=== PATIENT | male | born 1930 | race Caucasian/White ===

== ENCOUNTER 2018-04-08 09:24 | Emergency (ER) | payer MEDICARE, BC ==
[2018-04-08 09:40] VITALS: BP 135/83
--- NOTE | 2018-04-08 10:25 | CR ---
Chest 2V HISTORY: dyspnea FINDINGS: Heart size is within normal limits. Mild atherosclerotic calcification is seen in the aorti c arch. Pulmonary vasculature is not engorged. Blunting of the costophrenic angles bilaterally could represent a small amount of pleural thickening or fluid. There are mild interstitial infiltrates vers us atelectasis retrocardiac region left lower lobe. Mild degenerative changes are noted lower thoraci c spine. There are prominent degenerative and hypertrophic changes, glenohumeral joint right shoulder . IMPRESSION: Possible interstitial pneumonia versus atelectasis retrocardiac region left lower lobe. B lunting of the costophrenic angles bilaterally suggests a small amount of pleural thickening or fluid . No other acute chest abnormality is identified.
--- NOTE | 2018-04-08 11:02 | EDM.PDOC ---
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 He has been coughing, this morning he had some productive sputum and neck concerning the fire [employer] so he brought him in to be seen. Intermittent shortness of breath but no significant fever. No dysuria or abdominal pain. Onset: Gradual (Over the past 12 hours) Severity: Mild - Related Data Allergies Allergy/AdvReac Type Severity Reaction Status Date / Time No Known Allergies Allergy Verified 04/08/18 09:38 Home Meds: Home Meds Aspirin 81 mg PO DAILY 08/25/15 [History] Cinnamon Bark [Cinnamon] 500 mg PO BID 08/25/15 [History] Metoprolol Succinate [Toprol XL] 25 mg PO DAILY 08/25/15 [History] Lindrith-3/DHA/Epa/Fish Oil [Fish Oil] 500 mg PO DAILY 08/25/15 [History] Simvastatin [Zocor] 40 mg PO BEDTIME 08/25/15 [History] Warfarin [Coumadin] 2.5 mg PO ASDIRECTED 04/08/18 [History] Past Medical History HEENT History: Reports: Hard of Hearing, Other (See Below) Other HEENT History: bilateral hearing aids Cardiovascular History: Reports: Arrhythmia, Blood Clots/VTE/DVT, Hypertension Respiratory History: Reports: None Gastrointestinal History: Reports: Other (See Below) Other Gastrointestinal History: have some bowel incontinence Genitourinary History: Reports: Renal Disease Neurological History: Reports: CVA Psychiatric History: Reports: Dementia, Depression Endocrine/Metabolic History: Reports: None Hematologic History: Reports: Anticoagulation Therapy Immunologic History: Reports: None Oncologic (Cancer) History: Reports: None Dermatologic History: Reports: None - Infectious Disease History Infectious Disease History: Reports: Other (See Below) Other Infectious Disease History: unknown - Past Surgical History Head Surgeries/Procedures: Reports: None Cardiovascular Surgical History: Reports: None Musculoskeletal Surgical History: Reports: Other (See Below) Social & Family History - Tobacco Use Smoking Status *Q: Never Smoker Second Hand Smoke Exposure: No - Caffeine Use Caffeine Use: Reports: Coffee - Recreational Drug Use Recreational Drug Use: No ED ROS GENERAL - Review of Systems Review Of Systems: See Below Constitutional: Denies: Fever, Chills HEENT: Reports: No Symptoms Respiratory: Reports: Shortness of Breath, Cough, Sputum Cardiovascular: Reports: Chest Pain GI/Abdominal: Reports: Abdominal Pain (Sharp pains are somewhat in the right upper abdomen as well as the chest). Denies: Nausea Skin: Denies: Rash Neurological: Reports: Other (Patient has significant dementia and confusion which is chronic) Psychiatric: Reports: No Symptoms ED EXAM, GENERAL - Physical Exam Exam: See Below Exam Limited By: No Limitations General Appearance: Alert, No Apparent Distress Eye Exam: Bilateral Eye: EOMI Head: Atraumatic Respiratory/Chest: No Respiratory Distress, Decreased Breath Sounds (There are some decreased breath sounds in the bases with a few rales in the left base), Other (No tenderness to palpation of the chest wall) Cardiovascular: Regular Rate, Rhythm GI/Abdominal: Soft, Non-Tender Extremities: No: Pedal Edema Neurological: Alert, No Motor/Sensory Deficits, Other (Some confusion) Skin Exam: No Rash (There is no rash over the painful area on the right flank and chest), Other (Some bruises are on the arms from falling, and he has a small skin tear on the left elbow) Course - Vital Signs Last Recorded V/S: Last Vital Signs Temp 97.8 F 04/08/18 09:52 Pulse 85 04/08/18 09:52 Resp 17 04/08/18 09:40 BP 135/83 04/08/18 09:52 Pulse Ox 93 L 04/08/18 09:52 - Re-Assessments/Exams Free Text/Narrative Re-Assessment/Exam: 04/08/18 11:17 Two-view chest x-ray was obtained which shows a questionable small infiltrate in the left base but no acute findings on the right side which would correlate with his pain. He'll be treated with a five-day course of Zithromax, take Tylenol on a regular basis and return if worsening despite treatment. Departure - Departure Time of Disposition: 11:09 Disposition: Home, Self-Care 01 Condition: Good Clinical Impression: Bronchitis, Right-sided chest wall pain - Discharge Information Instructions: Acute Bronchitis, Adult Referrals: Dani Meraz MD [Primary Care Provider] - Forms: ED Department Discharge Care Plan Goals: Take antibiotic as prescribed, and Tylenol may be beneficial as well. Activity as tolerated and return anytime if worsening, or consider rechecking in 2-3 days if not improving satisfactorily.
== END 2018-04-08 11:09 | disposition home or self-care (01) ==
LOC: JP.ED 09:24
DX: J40 Bronchitis, not specified as acute or chronic (principal); R07.89 Other chest pain; S51.012A Laceration without foreign body of left elbow, initial encounter; S40.022A Contusion of left upper arm, initial encounter; S40.021A Contusion of right upper arm, initial encounter; Z79.82 Long term (current) use of aspirin; Z79.01 Long term (current) use of anticoagulants; W19.XXXA Unspecified fall, initial encounter
CPT/HCPCS: 71046; 71046-26; 99284